=== PATIENT | male | born 1990 | race Two or more races ===

== ENCOUNTER 2023-12-18 12:23 | Emergency (ER) | payer OTHER ==
[2023-12-18] MEDS: Ondansetron 4 MG Tab.DIS PO ONE (12:52)
[2023-12-18 13:01] LABS: BASOPHILS ABSOLUTE AUTO 0.05 K/uL (0.00-0.20); BASOPHILS PERCENT AUTO 0.5 % (0.0-2.0); EOSINOPHILS PERCENT AUTO 0.9 % (0.0-5.0); HEMATOCRIT 44.7 % (39.0-49.0); HEMOGLOBIN 14.6 g/dL (13.1-16.8); LYMPHOCYTES ABSOLUTE AUTO 3.23 K/uL (0.50-3.50); LYMPHOCYTES PERCENT AUTO 30.5 % (10.0-50.0); MEAN CORPUSCULAR HGB CONC 32.7 g/dL (31.7-36.0); MEAN CORPUSCULAR VOLUME 82.8 fL (84.0-98.0); MONOCYTES ABSOLUTE AUTO 0.72 K/uL (0.00-1.00); MONOCYTES PERCENT AUTO 6.8 % (2.0-14.0); NEUTROPHILS ABSOLUTE AUTO 6.49 K/uL (1.40-7.00); NEUTROPHILS PERCENT AUTO 61.3 % (45.0-80.0); PLATELET COUNT,PLT 321 K/uL (150-350); RED CELL DISTRIBUTION WIDTH 14.2 % (11.2-14.1); WHITE BLOOD CELL COUNT,WBC 10.6 K/uL (4.0-10.2)
[2023-12-18 13:16] LABS: ALBUMIN 3.9 g/dL (3.4-5.0); ANION GAP 8.4 meq/L (7-15); BILIRUBIN TOTAL 0.2 mg/dL (0.2-1.0); CALCIUM 9.3 mg/dL (8.5-10.1); CARBON DIOXIDE,CO2 29.6 mmol/L (21.0-32.0); CREATININE 1.11 mg/dL (0.51-1.17); EST CRCL DRUG DOSING (CG) 111.08 mL/min; ETHANOL BLOOD MEDICAL 0.004 g/dL (0.000-0.080); POTASSIUM,K 4.1 mmol/L (3.5-5.1); PROTEIN TOTAL,TP 7.4 g/dL (6.4-8.2)
[2023-12-18] MEDS: Morphine 2 MG/ML SYRINGE IVPUSH ONE (13:50)
[2023-12-18] MEDS: Ketorolac 15 MG/ML SDV IVPUSH ONE (14:25)
[2023-12-18] MEDS: Promethazine 25 MG/ML SDV IM ONE (14:31)
[2023-12-18] MEDS: Haloperidol Lactate 5 MG/ML SDV IVPUSH ONE (15:19)
[2023-12-18] MEDS: Sodium Chloride 0.9% 1,000 ML IV ONE ×2 (15:19→15:20)
[2023-12-18] MEDS: Pantoprazole 40 MG Vial IVPUSH ONE (15:19)
[2023-12-18] MEDS: Sodium Chloride 0.9% 10 ML Syringe FLUSH PRN (15:19)
[2023-12-18] MEDS: amLODIPine 5 MG Tab PO ONE (16:42)
[2023-12-18] MEDS: amLODIPine 5 MG Tab ONE (17:25)
== END 2023-12-18 17:00 | disposition home or self-care (01) ==
LOC: LL.ED 12:23
DX: R11.2 Nausea with vomiting, unspecified (principal); R03.0 Elevated blood-pressure reading, without diagnosis of hypertension; F17.210 Nicotine dependence, cigarettes, uncomplicated; E66.9 Obesity, unspecified; Z79.899 Other long term (current) drug therapy; Z68.34 Body mass index [BMI] 34.0-34.9, adult
CPT/HCPCS: 36415; 74022; 74176; 80053; 80307; 83605; 83690; 83735; 85025; 96361; 96372; 96374; 96375; 99284-25; A9270-GY; C9113; J1630; J1885; J2270; J2550; J3490; J7030